=== PATIENT | female | born 1950 | race Caucasian/White ===

== ENCOUNTER 2021-04-04 12:39 | Inpatient (IN) ==
[2021-04-04 14:07] LABS: ABS Lymphocytes 0.6 10^3/ul (1.0-4.8); ABS Monocytes 0.3 10^3/ul (0-0.8); ABS Neutrophils 1.7 10^3/ul (1.5-7.7); Eosinophil % 0.6 %; Hematocrit 40 % (35-47); Hemoglobin 13.3 g/dL (12.0-16.0); Lymphocyte % 23.3 %; Mean Corpuscular HGB Conc 33 g/dL (31-36); Mean Corpuscular Hemoglobin 30 pg (27-31); Mean Corpuscular Volume 91 fL (80-97); Mean Platelet Volume 8.3 fL (7.4-10.4); Nucleated Red Blood Cells % 0.1; Platelet Count 180 10^3/uL (150-450); Red Blood Count 4.42 10^6 /uL (3.70-4.87); Red Cell Distribution Width 14 % (10-15); White Blood Count 2.7 10^3/uL (3.5-10.8)
[2021-04-04 14:22] LABS: Anion Gap 8 mmol/L (2-11); Blood Urea Nitrogen 17 mg/dL (6-24); CO2 Carbon Dioxide 25 mmol/L (22-32); Chloride 104 mmol/L (101-111); Glucose 117 mg/dL (70-100); Potassium 3.7 mmol/L (3.5-5.0); Sodium 137 mmol/L (135-145)
[2021-04-04 14:23] LABS: ALT 18 U/L (7-52); AST 27 U/L (13-39); Albumin 4.4 g/dL (3.2-5.2); Albumin/Globulin Ratio 2.1 (1-3); Alkaline Phosphatase 58 U/L (35-149); Calcium 9.4 mg/dL (8.6-10.3); Globulin 2.1 g/dL (2-4); Total Protein 6.5 g/dL (6.4-8.9)
[2021-04-04 14:43] LABS: Acetaminophen < 15 mcg/mL; Alcohol, S < 13 mg/dL (<13); Salicylate < 2.50 mg/dL (<30)
[2021-04-04 14:56] LABS: TSH Ultra Thyroid Stim Horm 2.66 mcIU/mL (0.34-5.60)
[2021-04-04 15:34] LABS: Urine Appearance Clear; Urine Color Yellow; Urine Urobilinogen Negative (Negative); Urine pH 5 (5-9)
[2021-04-04 15:35] LABS: Urine Bilirubin Negative (Negative); Urine Blood Negative (Negative); Urine Glucose Negative (Negative); Urine Ketones Negative (Negative); Urine Nitrite Negative (Negative); Urine Protein Negative (Negative)
[2021-04-04 15:47] LABS: Urine Benzodiazepine Screen None Detected (None Detect); Urine Cannabinoids Screen None Detected (None Detect); Urine Opiates Screen None Detected (None Detect)
[2021-04-04] MEDS ORDERED: Al Hydrox/Mg Hydrox/Simet LIQ 30 ML UDC PO PRN (20:14)
[2021-04-04] MEDS ORDERED: Nicotine GUM 2MG FRUIT FLAVOR PO PRN (21:00)
[2021-04-05 07:50] LABS: HDL Cholesterol 88.4 mg/dL
[2021-04-05] MEDS: Vitamin THERAPEUTIC TAB PO SCH ×2 (09:04→09:05)
[2021-04-06] MEDS: Vitamin THERAPEUTIC TAB PO SCH (11:07)
[2021-04-07] MEDS: Vitamin THERAPEUTIC TAB PO SCH (11:36)
[2021-04-07] MEDS ORDERED: OLANzapine 5 mg TAB*ODT PO PRN (14:15)
[2021-04-08 08:15] VITALS: BP 112/92
[2021-04-08] MEDS: Vitamin THERAPEUTIC TAB PO SCH (10:42)
[2021-04-08] MEDS ORDERED: Cholecalciferol (VIT D3) 1,000 unit TAB PO ONE (12:00)
[2021-04-09] MEDS: Vitamin THERAPEUTIC TAB PO SCH (08:42)
[2021-04-09] MEDS ORDERED: Cholecalciferol (VIT D3) 1,000 unit TAB PO SCH (09:00)
== END 2021-04-09 16:50 | disposition home or self-care (01) | DRG 885 ==
LOC: ED 12:39 → EDHOLD 16:30 → BSU 19:45
PROVIDERS: ADMIT Psychiatry & Neurology Addiction Psychiatry; ATTEND Psychiatry & Neurology Addiction Psychiatry

== ENCOUNTER 2021-04-20 20:25 | Inpatient (IN) ==
[2021-04-20 21:39] LABS: ABS Lymphocytes 0.6 10^3/ul (1.0-4.8); ABS Monocytes 0.4 10^3/ul (0-0.8); ABS Neutrophils 2.9 10^3/ul (1.5-7.7); Eosinophil % 0.5 %; Hematocrit 39 % (35-47); Lymphocyte % 14.3 %; Mean Corpuscular HGB Conc 33 g/dL (31-36); Mean Corpuscular Hemoglobin 31 pg (27-31); Mean Corpuscular Volume 92 fL (80-97); Mean Platelet Volume 8.5 fL (7.4-10.4); Nucleated Red Blood Cells % 0.1; Platelet Count 223 10^3/uL (150-450); Red Blood Count 4.24 10^6 /uL (3.70-4.87); Red Cell Distribution Width 14 % (10-15); White Blood Count 3.9 10^3/uL (3.5-10.8)
[2021-04-20 22:02] LABS: ALT 21 U/L (7-52); AST 28 U/L (13-39); Albumin 4.2 g/dL (3.2-5.2); Albumin/Globulin Ratio 1.9 (1-3); Alkaline Phosphatase 60 U/L (35-149); Anion Gap 7 mmol/L (2-11); Blood Urea Nitrogen 14 mg/dL (6-24); CO2 Carbon Dioxide 23 mmol/L (22-32); Calcium 9.3 mg/dL (8.6-10.3); Chloride 103 mmol/L (101-111); Globulin 2.2 g/dL (2-4); Glucose 105 mg/dL (70-100); Potassium 3.7 mmol/L (3.5-5.0); Sodium 133 mmol/L (135-145); Total Protein 6.4 g/dL (6.4-8.9); eGFR CKD-EPI 59.9 (>60)
[2021-04-20 22:09] LABS: Urine Benzodiazepine Screen None Detected (None Detect); Urine Cannabinoids Screen None Detected (None Detect); Urine Opiates Screen None Detected (None Detect)
[2021-04-20 22:13] LABS: Urine Appearance Clear; Urine Bilirubin Negative (Negative); Urine Blood Negative (Negative); Urine Color Straw; Urine Glucose Negative (Negative); Urine Ketones Negative (Negative); Urine Nitrite Negative (Negative); Urine Protein Negative (Negative); Urine Specific Gravity 1.006 (1.002-1.030); Urine Urobilinogen Negative (Negative)
[2021-04-20 22:24] LABS: Alcohol, S < 13 mg/dL (<13); Salicylate < 2.50 mg/dL (<30)
[2021-04-20 22:25] LABS: Acetaminophen < 15 mcg/mL
[2021-04-20 22:26] LABS: Urine Bacteria Absent (Absent); Urine Red Blood Cell Trace(0-2/hpf) (Absent); Urine White Blood Cell Trace(0-5/hpf) (Absent)
[2021-04-20 22:40] LABS: TSH Ultra Thyroid Stim Horm 2.57 mcIU/mL (0.34-5.60)
[2021-04-21] MEDS ORDERED: Al Hydrox/Mg Hydrox/Simet LIQ 30 ML UDC PO PRN (08:13)
[2021-04-21 09:00] LABS: Rapid COVID-19 Molecular Undetected (Undetected)
[2021-04-21] MEDS: Vitamin THERAPEUTIC TAB PO SCH (09:42)
[2021-04-21] MEDS ORDERED: risperiDONE-M 1 mg Oradis TAB PO PRN (14:15)
[2021-04-22] MEDS: Cholecalciferol (VIT D3) 1,000 unit TAB PO SCH (09:11)
[2021-04-22] MEDS: Vitamin THERAPEUTIC TAB PO SCH (09:13)
[2021-04-23] MEDS: Cholecalciferol (VIT D3) 1,000 unit TAB PO SCH (09:10)
[2021-04-23] MEDS: Vitamin THERAPEUTIC TAB PO SCH (09:11)
[2021-04-24] MEDS: Cholecalciferol (VIT D3) 1,000 unit TAB PO SCH (09:56)
[2021-04-24] MEDS: Vitamin THERAPEUTIC TAB PO SCH (15:25)
[2021-04-25] MEDS: Vitamin THERAPEUTIC TAB PO SCH (07:32)
[2021-04-25] MEDS: Cholecalciferol (VIT D3) 1,000 unit TAB PO SCH (07:33)
[2021-04-26] MEDS: Cholecalciferol (VIT D3) 1,000 unit TAB PO SCH (09:54)
[2021-04-26] MEDS: Vitamin THERAPEUTIC TAB PO SCH (09:55)
[2021-04-27] MEDS: Vitamin THERAPEUTIC TAB PO SCH (09:24)
[2021-04-27] MEDS: Cholecalciferol (VIT D3) 1,000 unit TAB PO SCH (09:24)
[2021-04-28] MEDS: Cholecalciferol (VIT D3) 1,000 unit TAB PO SCH (10:09)
[2021-04-28] MEDS: Vitamin THERAPEUTIC TAB PO SCH (10:09)
[2021-04-29] MEDS: Cholecalciferol (VIT D3) 1,000 unit TAB PO SCH (09:43)
[2021-04-29] MEDS: Vitamin THERAPEUTIC TAB PO SCH (09:44)
[2021-04-30] MEDS: Vitamin THERAPEUTIC TAB PO SCH (09:12)
[2021-04-30] MEDS: Cholecalciferol (VIT D3) 1,000 unit TAB PO SCH (09:12)
[2021-05-01] MEDS: Cholecalciferol (VIT D3) 1,000 unit TAB PO SCH (08:40)
[2021-05-01] MEDS: Vitamin THERAPEUTIC TAB PO SCH (08:41)
[2021-05-01] MEDS ORDERED: Polyethylene Glycol 3350 17 GM PACKET ONE (15:40)
[2021-05-01] MEDS ORDERED: Polyethylene Glycol 3350 17 GM PACKET PO ONE (17:15)
[2021-05-02] MEDS: Cholecalciferol (VIT D3) 1,000 unit TAB PO SCH (09:28)
[2021-05-02] MEDS: Vitamin THERAPEUTIC TAB PO SCH (09:28)
[2021-05-03 08:39] VITALS: BP 135/87
[2021-05-03] MEDS: Vitamin THERAPEUTIC TAB PO SCH (11:33)
[2021-05-03] MEDS: Cholecalciferol (VIT D3) 1,000 unit TAB PO SCH (11:33)
== END 2021-05-03 12:22 | disposition home or self-care (01) | DRG 885 ==
LOC: ED 20:25 → EDHOLD 04-21 08:22 → BSU 04-21 09:57
PROVIDERS: ADMIT Psychiatry & Neurology Psychiatry; ATTEND Psychiatry & Neurology Psychiatry